=== PATIENT | female | born 1995 | race Two or more races ===

== ENCOUNTER 2024-06-03 19:29 | Emergency (ER) | payer MEDICAID, SELFPAY ==
[2024-06-03 19:32] VITALS: BMI 19.1
[2024-06-03 20:12] VITALS: BP 118/80; PULSE 82; RESP 16; TEMP 36.9; O2SAT 100
--- NOTE | 2024-06-03 20:28 | XR_ITS ---
Examination: CT abdomen and pelvis without contrast. Coronal 3-D reconstructions. Sagittal 2-D reconstructions. Date and time of exam:June 03, 2024 1010 hrs. Indications: Pelvic pain abdominal pain today CTDI: vol (mGy): 5.35 DLP: (mGycm): 262 Technique: Axial images of the abdomen have been obtained, 3 mm slice thickness Intravenous contrast material has not been administered. Low dose protocols were performed. One or more of the following dose reduction techniques were used; automated exposure control, adjustment of the mA and/or KV according to patient size, use of iterative reconstruction technique. Findings: Contracted gallbladder No pancreatic mass No renal or ureteral calculi, no hydronephrosis Aorta normal size No bowel obstruction Normal appendix No bowel obstruction or diverticulitis Cystic mass in the left pelvis with hyperdense areas which may represent hemorrhage, measuring 4.4 cm Urinary bladder intact The osseous structures are intact Impression: Normal appendix Suspicious for hemorrhagic cyst with active bleeding within the cyst or other left adnexal mass,, left ectopic not excluded in the appropriate clinical setting, recommend pelvic sonography follow-up
--- NOTE | 2024-06-03 20:28 | PD.EDRME ---
Rapid Medical Screening Exam RME Arrival date/time: 06/03/24 19:29 29-year-old female presents emergency department complaining of lower abdominal pain that radiates down into her pelvis and it has been ongoing since today. Chief Complaint: Abdominal Pain Time Seen by Provider: 06/03/24 20:23 Vital signs: Vital Signs Temperature 98.4 F 06/03/24 20:12 Pulse Rate 82 06/03/24 20:12 Respiratory Rate 16 06/03/24 20:12 Blood Pressure 118/80 06/03/24 20:12 Pulse Oximetry (%) 100 06/03/24 20:12 Oxygen Delivery Method Room Air 06/03/24 20:12 Vital signs reviewed by provider: Yes
[2024-06-03 21:05] LABS: Basophils # (Auto) 0.1 Thou/mm3 (0.0-0.2); Basophils % (Auto) 1 % (0-2.5); Eosinophils # (Auto) 0.5 Thou/mm3 (0.0-0.5); Eosinophils % (Auto) 4 % (0-10); Hematocrit 37.4 % (36.0-46.0); Hemoglobin 12.8 g/dL (12.0-16.0); Immature Granulocytes % (Auto) 1 % (0-0); Immature Granulocytes Auto 0.08 Thou/mm3 (0.00-0.00); Lymphocytes # (Auto) 4.2 Thou/mm3 (1.0-4.8); Lymphocytes % (Auto) 30 % (10-50); Mean Corpuscular HGB Conc 34.2 g/dl (31.0-37.0); Mean Corpuscular Hemoglobin 31.4 pg (25.0-35.0); Mean Corpuscular Volume 92 fL (80-100); Monocytes # (Auto) 0.8 Thou/mm3 (0.0-0.8); Monocytes % (Auto) 6 % (0-12); Neutrophils # (Auto) 8.2 Thou/mm3 (1.8-7.7); Neutrophils % (Auto) 59 % (37-80); Nucleated Red Blood Cell % 0 /100 WBC (0); Platelet Count 282 Thou/mm3 (140-440); RDW Standard Deviation 39.5 fL (36.4-46.3); Red Blood Count 4.07 Miln/mm3 (4.00-5.20); White Blood Count 13.9 Thou/mm3 (3.6-11.0)
[2024-06-03 21:18] LABS: Alanine Aminotransferase 17 U/L (10-49); Albumin, Serum 4.2 gm/dL (3.5-5.0); Albumin/Globulin Ratio 1.4 (1.2-2.2); Alkaline Phosphatase 70 U/L (46-116); Anion Gap 4 (7-16); Aspartate Amino Transferase 18 U/L (0-34); BUN/Creatinine Ratio 13 Ratio (12-20); Bilirubin,Total 0.5 mg/dL (0.3-1.2); Blood Urea Nitrogen 8 mg/dL (9-23); Calcium 9.1 mg/dL (8.3-10.6); Calcium (Corrected) 9.1 mg/dL (8.5-10.1); Chloride 106 mMol/L (98-107); Creatinine (Component) 0.6 mg/dL (0.6-1.3); Estimated Creatinine Clearance 113.9 mL/min (>60); Globulin 2.9 gm/dL (2.3-3.5); Glucose 96 mg/dL (74-106); Lipase 31 U/L (12-53); Osmolality,Calculated 270 (275-295); Potassium 3.8 mMol/L (3.4-5.1); Sodium 136 mMol/L (136-145); Total Protein 7.1 gm/dL (5.7-8.2); eGFR > 60 See Note
[2024-06-03 21:24] LABS: Collection Type, Urine Clean Catch
[2024-06-03 21:35] LABS: Bilirubin,Urine Negative (Negative); Blood,Urine Negative (Negative); Clarity,Urine Clear (Clear/Hazy); Color,Urine Colorless (Lt Yel-Yel); Culture Indicated,Urine Not Indicated; Glucose, Urine Negative (Negative); Ketones,Urine 1+ (Negative); Leukocyte Esterase,Urine Negative (Negative); Nitrite,Urine Negative (Negative); PH,Urine 6.5 (5.0-7.0); Protein,Urine Negative (Neg - Trace); RBC,Urine < 1 /hpf (0-3); Specific Gravity,Urine 1.013 (1.001-1.035); Squamous Epithelial Cell,Urine < 1 /hpf (0-5); Urobilinogen,Urine Negative mg/dL (0.0-1.0); WBC,Urine < 1 /hpf (0-5)
[2024-06-03 21:47] LABS: HCG,Qualitative Serum Negative
[2024-06-03 21:59] VITALS: BP 109/72; PULSE 77; RESP 17; TEMP 37.1; O2SAT 100
[2024-06-03] MEDS: KETOROLAC INJ 60 MG/2 ML VIAL 30 MG IM (23:55)
[2024-06-04 00:45] VITALS: BP 110/74; PULSE 80; RESP 16; TEMP 36.9; O2SAT 99
--- NOTE | 2024-06-04 01:37 | PC.NURSE ---
PT ALERT AND ORIENTED SIGNING OUT AMA. PT IS TIRED AND DOES NOT WANT TO WAIT FOR ULTRASOUND, WANTS TO GO HOME. PT REPORTS FEELING A LITTLE BETTER. PT INFORMED OF RISKS OF LEAVING. PT INFORMED TO RETURN IF SYMPTOMS WORSEN. PT VERBALIZED UNDERSTANDING.
== END 2024-06-04 01:37 | disposition left against medical advice (07) ==
LOC: SERX 21:11
PROVIDERS: Emergency Provider Emergency Medicine
DX: R10.2 Pelvic and perineal pain (principal); Z53.29 Procedure and treatment not carried out because of patient's decision for other reasons
CPT/HCPCS: 36415; 74176; 80053; 81001; 83690; 84703; 85025; 96372; 99281; J1885

== ENCOUNTER → 2025-06-16 | Outpatient (CLI) | payer BC, SELFPAY ==
[2025-06-16 13:03] LABS: Basophils # (Auto) 0.0 Thou/mm3 (0.0-0.2); Basophils % (Auto) 1 % (0-2.5); Eosinophils # (Auto) 0.6 Thou/mm3 (0.0-0.5); Eosinophils % (Auto) 10 % (0-10); Hematocrit 40.3 % (36.0-46.0); Hemoglobin 13.6 g/dL (12.0-16.0); Immature Granulocytes Auto 0.02 Thou/mm3 (0.00-0.00); Lymphocytes # (Auto) 2.3 Thou/mm3 (1.0-4.8); Lymphocytes % (Auto) 38 % (10-50); Mean Corpuscular HGB Conc 33.7 g/dl (31.0-37.0); Mean Corpuscular Hemoglobin 31.8 pg (25.0-35.0); Mean Corpuscular Volume 94 fL (80-100); Monocytes # (Auto) 0.4 Thou/mm3 (0.0-0.8); Monocytes % (Auto) 6 % (0-12); Neutrophils # (Auto) 2.7 Thou/mm3 (1.8-7.7); Neutrophils % (Auto) 45 % (37-80); Nucleated Red Blood Cell # 0.00 Thou/mm3 (0.00-0.00); Nucleated Red Blood Cell % 0 /100 WBC (0); Platelet Count 320 Thou/mm3 (140-440); RDW Standard Deviation 41.0 fL (36.4-46.3); Red Blood Count 4.28 Miln/mm3 (4.00-5.20); White Blood Count 6.0 Thou/mm3 (3.6-11.0)
[2025-06-16 13:13] LABS: Glucose Estimated Average 103 mg/dL (80-131); Hemoglobin A1C 5.2 % Hgb (4.8-6.0)
[2025-06-16 13:22] LABS: Creatinine MALB Rnd Ur 62 mg/dL (30-125); Microalbumin, Random Urine < 3 mg/L (0-300)
[2025-06-16 13:26] LABS: Alanine Aminotransferase 15 U/L (10-49); Albumin, Serum 4.4 gm/dL (3.5-5.0); Albumin/Globulin Ratio 1.5 (1.2-2.2); Alkaline Phosphatase 58 U/L (46-116); Anion Gap 5 (7-16); Aspartate Amino Transferase 19 U/L (0-34); BUN/Creatinine Ratio 11 Ratio (12-20); Bilirubin,Total 1.0 mg/dL (0.3-1.2); Blood Urea Nitrogen 8 mg/dL (9-23); Calcium 9.3 mg/dL (8.3-10.6); Calcium (Corrected) 9.3 mg/dL (8.5-10.1); Carbon Dioxide 30.3 mMol/L (20.0-31.0); Cardiac Risk Estimate 2.3 RATIO (3.7-5.6); Chloride 106 mMol/L (98-107); Cholesterol 185 mg/dL (132-200); Creatinine (Component) 0.7 mg/dL (0.6-1.3); Free T4 (Free Thyroxine) 1.27 ng/dL (0.89-1.76); Globulin 3.0 gm/dL (2.3-3.5); Glucose 90 mg/dL (74-106); HDL Cholesterol 81 mg/dL (40-60); LDL Cholesterol,Calculated 93 mg/dL (0-130); Osmolality,Calculated 279 (275-295); Potassium 4.0 mMol/L (3.4-5.1); Sodium 141 mMol/L (136-145); Thyroid Stimulating Hormone 1.57 uIU/mL (0.55-4.78); Total Protein 7.4 gm/dL (5.7-8.2); Triglycerides 54 mg/dL (30-150); eGFR > 60 See Note
[2025-06-16 13:30] LABS: Folate > 24.00 ng/mL (>5.38); Vitamin B12 684 pg/mL (211-911); Vitamin D 25 Hydroxy Total 33.3 ng/mL (7.3-40.2)
[2025-06-16 13:39] LABS: Syphilis Nonreactive (Nonreactive)
[2025-06-24 08:51] LABS: HCV RNA, PCR <15 NOT DETECTED IU/mL; Hepatitis B Virus DNA* NOT DETECTED
[2025-06-24 13:47] LABS: HCV RNA, PCR Log IU <1.18 NOT DETECTED Log IU/mL; Hepatitis B DNA PCR NOT DETECTED Log IU/mL
== END | disposition home or self-care (01) ==
PROVIDERS: PCP Internal Medicine; Referring Provider Student in an Organized Health Care Education/Training Program; Visit Provider Student in an Organized Health Care Education/Training Program
DX: Z00.01 Encounter for general adult medical examination with abnormal findings (principal); R53.83 Other fatigue; Z11.3 Encounter for screening for infections with a predominantly sexual mode of transmission; Z11.59 Encounter for screening for other viral diseases; Z11.4 Encounter for screening for human immunodeficiency virus [HIV]; Z79.899 Other long term (current) drug therapy
CPT/HCPCS: 36415; 80053; 80061; 82043; 82306; 82570; 82607; 82746; 83036; 84439; 84443; 85025; 86780; 87389; 87517; 87522

== ENCOUNTER → 2025-06-22 | Outpatient (CLI) | payer BC, SELFPAY ==
[2025-06-22 16:14] LABS: Ferritin 61 ng/mL (7.3-270.7); Iron 139 mcg/dL (50-170); Percent Iron Saturation 47 % (20-55); Total Iron Binding Capacity 291 mcg/dL (250-425); Unsaturated Iron Binding 152 (225-295)
[2025-06-22 18:19] LABS: Urea Breath Test Negative (Negative)
== END | disposition home or self-care (01) ==
PROVIDERS: Referring Provider Student in an Organized Health Care Education/Training Program
DX: Z00.01 Encounter for general adult medical examination with abnormal findings (principal); R53.83 Other fatigue; R14.0 Abdominal distension (gaseous); Z11.3 Encounter for screening for infections with a predominantly sexual mode of transmission; Z11.59 Encounter for screening for other viral diseases; Z11.4 Encounter for screening for human immunodeficiency virus [HIV]
CPT/HCPCS: 36415; 82728; 83013; 83014; 83540; 83550